=== PATIENT | female | born 1950 | race Caucasian/White ===

== ENCOUNTER 2018-09-08 05:59 | Day surgery (SDC) | payer BC ==
[2018-09-01 17:18] VITALS: BMI 30.2
[2018-09-08] MEDS ORDERED: MIDAZOLAM HCL 2 MG/2 ML SINGLE DOSE VIAL ONE ×2 (06:40→07:55)
[2018-09-08] MEDS ORDERED: ROPIVACAINE HCL 0.5% 30ML VIAL ONE (06:40)
[2018-09-08] MEDS ORDERED: PROPOFOL 20 ML ONE ×4 (07:50)
[2018-09-08] MEDS ORDERED: ceFAZolin SODIUM 1 GM VIAL ONE (08:42)
[2018-09-08] MEDS ORDERED: LIDOCAINE HCL/PF 2% SDV 5ML VIAL ONE (08:42)
[2018-09-08] MEDS ORDERED: ONDANSETRON 4 MG/2 ML VIAL ONE (08:42)
[2018-09-08] MEDS ORDERED: oxyCODONE HCL 5 MG TABLET PO PRN (08:57)
[2018-09-08] MEDS ORDERED: ONDANSETRON 4 MG/2 ML VIAL IVPUSH PRN (08:57)
[2018-09-08] MEDS ORDERED: LACTATED RINGERS SOLUTION 1,000 ML IV SCH (09:00)
--- NOTE | 2018-09-08 11:32 | OP ---
DATE OF OPERATION: 09/08/2018 SURGEON: Pb Hector MD PLASTER APPLICATOR: RADHA Villa PREOPERATIVE DIAGNOSES: 1. Right shoulder rotator cuff tear. 2. Right shoulder adhesive capsulitis. 3. Right shoulder impingement. 4. Right shoulder acromioclavicular degenerative joint disease. 5. Right shoulder superior labral tear, anterior and posterior, with synovitis. POSTOPERATIVE DIAGNOSES: 1. Right shoulder rotator cuff tear. 2. Right shoulder adhesive capsulitis. 3. Right shoulder impingement. 4. Right shoulder acromioclavicular degenerative joint disease. 5. Right shoulder superior labral tear, anterior and posterior, with synovitis. PROCEDURES PERFORMED: 1. Right shoulder arthroscopy with arthroscopic rotator cuff repair (CPT code 65340). 2. Right shoulder arthroscopy with lysis and resection of adhesions (CPT code 45194). 3. Right shoulder arthroscopy with subacromial decompression (CPT code 77059). 4. Right shoulder arthroscopy with resection of distal clavicle/acromioclavicular joint (CPT code 44275). 5. Right shoulder arthroscopy with debridement (CPT code 31517). FINDINGS: 1. A full-thickness rotator cuff tear, supraspinatus. 2. Partial subscapularis tear. 3. Type 1 to 4 superior labral tear, anterior to posterior, with extension into the biceps tendon. 4. Anterior and posterior labral fraying. 5. Central grade 3 to 4 cartilage injury, 4 cm x 2 cm, central glenoid. 6. Full-thickness supraspinatus, 6 cm in length. 7. Type 3 acromion with anterior spurring. 8. Inferior spurs of clavicle, acromioclavicular joint disease. 9. Thickened scar tissue in the subacromial space. 10. Glenohumeral adhesions and scar tissue diffusely along the synovium. REPAIR TYPE: Two mattress sutures were placed into the supraspinatus using the Opus delivery device, and 1 [place] anchor was used attaching the 2 sutures. DESCRIPTION OF PROCEDURE: Informed consent was obtained. The patient was taken to the operating room, where the upper extremity was prepped and draped in a sterile fashion. The shoulder was manipulated for a full range of motion. A posterior incision portal was made and directed to the glenohumeral joint. Under direct visualization, an anterior incision and portal was made. Extensive synovitis, as well as chondral injuries throughout the glenohumeral joint were debrided and removed. Any identified labral injuries, including the superior labral tear, anterior and posterior, and anterior labrum torn portions, were removed as well. The rotator cuff was visualized and noted to have a full-thickness tear. The edges were debrided. The posterior incision portal was redirected to the subacromial space where a lateral incision portal was made. Excessive and thickened scar tissue noted throughout the subacromial space, including bursal and scar tissue, was removed. The type 2 acromion was converted into a flattened type 1 using a bur for subacromial decompression. The distal inferior spur at the distal clavicle was also debrided with the use of an accessory portal in the acromioclavicular joint. The edges of the rotator cuff were identified. Sutures were placed into the rotator cuff and secured using anchors through the greater tuberosity. Prior to securing, a bleeding bed was made using a small bur, creating a bleeding surface of the rotator cuff insertion. The shoulder was then drained, a single suture was placed in all portals, a sterile dressing was placed and the patient was transferred to the recovery room without complication. The PA listed above was present and assisted at surgery. Their presence was absolutely medically necessary for the completion of the procedure. They helped hold the arthroscopy, pass instruments (and implants when indicated) and the procedure could not have been completed without their assistance. PB HECTOR M.D. [id number]
[2018-09-08] MEDS ORDERED: ACETAMINOPHEN 325 MG TABLET (FP) ONE (11:33)
[2018-09-08 12:55] VITALS: BP 140/71; PULSE 70; TEMP 97.4
[2018-09-08] MEDS ORDERED: ACETAMINOPHEN 325 MG TABLET (FP) PO ONE (12:57)
--- NOTE | 2018-09-13 14:04 | PATH ---
Surgical Pathology Report Patient Name: KHANH CORRALES Med. Rec. #: [id number] /Age/Gender: 1950 (Age: 68) / F Account: [id number] Location: [facility] Taken: 09/08/2018 Received: 09/08/2018 Reported: 09/13/2018 Physicians: Washington Ellis M.D. Specimen(s) Received RIGHT KNEE SHAVINGS Clinical History Right shoulder, rotator cuff tear Final Diagnosis SHOULDER, RIGHT, ARTHROSCOPIC SHAVINGS: FIBROSYNOVIAL TISSUE, CARTILAGE, SKELETAL MUSCLE AND SCANT BONE. Electronically Signed Celeste Ferreira M.D. Gross Description Received in formalin, labeled "right shoulder shavings" multiple fragments of soto and yellow soft tissue having an aggregate of 3.5 x 2 x 0 4 cm. Heater Tender tissue is submitted in one cassette. AE/09/11/2018 ebram/09/11/2018
== END 2018-09-08 12:00 | disposition home or self-care (01) ==
LOC: FASU 05:59
PROVIDERS: ATTEND Orthopaedic Surgery
PROC: 0RNJ4ZZ Release Right Shoulder Joint, Percutaneous Endoscopic Approach (ICD-10-PCS; 2018-09-08)
PROC: 0PB94ZZ Excision of Right Clavicle, Percutaneous Endoscopic Approach (ICD-10-PCS; 2018-09-08)
PROC: 0RBJ4ZZ Excision of Right Shoulder Joint, Percutaneous Endoscopic Approach (ICD-10-PCS; 2018-09-08)
PROC: 0LQ14ZZ Repair Right Shoulder Tendon, Percutaneous Endoscopic Approach (ICD-10-PCS; principal; 2018-09-08 08:11)
DX: M75.121 Complete rotator cuff tear or rupture of right shoulder, not specified as traumatic (principal); M75.01 Adhesive capsulitis of right shoulder; M75.41 Impingement syndrome of right shoulder; M19.011 Primary osteoarthritis, right shoulder; M65.811 Other synovitis and tenosynovitis, right shoulder; M24.111 Other articular cartilage disorders, right shoulder
CPT/HCPCS: 88304-TC; 94760

== ENCOUNTER 2019-11-16 06:15 | Day surgery (SDC) | payer BC ==
[2019-11-12 17:12] VITALS: BMI 31.4
[2019-11-16] MEDS ORDERED: EPINEPHrine 1:1,000 1 MG/1 ML - 30ML VIAL (INJECTION) ONE (07:10)
[2019-11-16] MEDS ORDERED: BUPIVACAINE HCL/PF 2.5 MG/ML - 30 ML VIAL IJ ONE (07:10)
[2019-11-16] MEDS ORDERED: MIDAZOLAM HCL 2 MG/2 ML SINGLE DOSE VIAL ONE (07:16)
[2019-11-16] MEDS ORDERED: PROPOFOL 20 ML ONE ×2 (07:16→07:35)
[2019-11-16] MEDS ORDERED: SUCCINYLCHOLINE CHLORIDE 200 MG/10 ML SYRINGE ONE (07:16)
[2019-11-16] MEDS ORDERED: ACETAMINOPHEN INJECTION 100 ML IVPB ONE (07:20)
[2019-11-16] MEDS ORDERED: LIDOCAINE HCL/PF 2% SDV 5ML VIAL ONE (07:35)
[2019-11-16] MEDS ORDERED: SODIUM CHLORIDE 0.9% P/F 10 ML VIAL IJ ONE (07:40)
[2019-11-16] MEDS ORDERED: ceFAZolin SODIUM 1 GM VIAL ONE (07:41)
[2019-11-16] MEDS ORDERED: GLYCOPYRROLATE 0.2 MG/1 ML VIAL ONE (07:57)
[2019-11-16] MEDS ORDERED: EPHEDRINE SULFATE/0.9% NACL/PF 50 MG/10 ML SYRINGE NR ONE (08:06)
[2019-11-16] MEDS ORDERED: KETOROLAC TROMETHAMINE 30 MG/1 ML VIAL ONE (08:16)
[2019-11-16] MEDS ORDERED: BUPIVACAINE HCL/PF 0.25% (2.5MG/ML) 10 ML VIAL IJ ONE (08:37)
[2019-11-16] MEDS ORDERED: oxyCODONE HCL 5 MG TABLET PO PRN ×2 (08:58)
[2019-11-16] MEDS ORDERED: ONDANSETRON 4 MG/2 ML VIAL IVPUSH PRN (08:58)
[2019-11-16] MEDS ORDERED: LACTATED RINGERS SOLUTION 1,000 ML IV SCH (09:00)
[2019-11-16 10:09] VITALS: TEMP 98.6
[2019-11-16 12:23] VITALS: PULSE 61
[2019-11-16 12:28] VITALS: BP 139/53
--- NOTE | 2019-11-16 20:16 | OP ---
DATE OF OPERATION: 11/16/2019 LOCATION: [facility]. SURGEON: Washington Hector MD. REMARKETING REP: RADHA Villa. PREOPERATIVE DIAGNOSIS: 1. Right knee medial lateral meniscal tear. 2. Right knee cartilage injury. 3. Right knee synovitis. POSTOPERATIVE DIAGNOSIS: 1. Right knee medial lateral meniscal tear. 2. Right knee cartilage injury. 3. Right knee synovitis. PROCEDURE: 1. Right knee arthroscopy, partial meniscectomy medial and lateral meniscus. CPT code 24863. 2. Right knee arthroscopy with chondroplasty and abrasion plasty. CPT code 35176. 3. Right knee arthroscopy synovectomy. CPT code 49137. FINDINGS: 1. Medial meniscus and posterior horn extension to the root posterior 15%. 2. Lateral meniscus anterior horn and central body and posterior horn tear. 3. Synovitis patellofemoral medial lateral notch area. 4. plateau with moderate grade 3 changes 2 cm x 1 cm anterior medial, medial femoral condyle 5. ACL and PCL intact. 6. Diffuse grade 1-2 . 7. Central grade 1-2 cartilage injury patellofemoral trochlea with 4 cm x 2 cm grade 4 changes patellofemoral trochlea anterior femur at site of plica adhesion. PROCEDURE: Informed consent was obtained. The patient came to the operating room, where the lower extremity was prepped and draped in a sterile fashion. A tourniquet was placed on the upper thigh, but not inflated. Using standard arthroscopic technique, a lateral incision and portal was made to allow for introduction of the camera into the suprapatellar bursa. This was then taken to the medial joint line, where under direct visualization, a medial incision and portal was made. Excessive synovium noted in the medial, lateral and patellofemoral and notch area was removed by an upbiter, shaver and Bovie cautery. This was found to bring in inflammatory tissue into the joint surface, a source of pain and dysfunction. Probing of the medial and lateral meniscus found tears, as described in the findings. These were removed with the upbiter and shaver and taken back to a stable rim. Grade 2 to 3 degenerative changes were treated with a chondroplasty, removing all flaking surfaces with low-setting Bovie along the periphery to prevent further flaking. Grade 4 changes, as noted, were treated with an abrasoplasty, creating a bleeding surface at the bone/cartilage interface. Aggressive debridement with shaver/jody created bleeding surface. Micro fracture also done when indicated in findings. All areas of the knee were once again reexamined. The knee was then drained and a single suture was placed in all portals. A sterile dressing was placed and the patient was transferred to the recovery room without complication. The PA listed above was present and assisted at surgery. Their presence was absolutely medically necessary for the completion of the procedure. They helped hold the arthroscopy, pass instruments (and implants when indicated) and the procedure could not have been completed without their assistance. WASHINGTON HECTOR M.D. [id number]
--- NOTE | 2019-11-20 16:12 | PATH ---
Surgical Pathology Report Patient Name: KHANH CORRALES Med. Rec. #: [id number] /Age/Gender: 1950 (Age: 69) / F Account: [id number] [facility] Taken: 11/16/2019 Received: 11/16/2019 Reported: 11/20/2019 Physicians: Washington Ellis M.D. Specimen(s) Received RIGHT KNEE SHAVINGS Clinical History Derangement of right knee Final Diagnosis RIGHT KNEE SHAVINGS: PORTIONS OF FIBROCARTILAGINOUS AND SYNOVIAL TISSUE WITH FOCAL FIBROSIS. Electronically Signed Vinh Fermin M.D. Gross Description Received in formalin, labeled "right knee shaving," is a 4.5 x 4.5 x 0.4 cm. aggregate of soto-yellow soft tissue fragments. A architectural representative portion is submitted in one cassette. /11/16/2019 saudi/11/16/2019
== END 2019-11-16 11:30 | disposition home or self-care (01) ==
LOC: FASU 06:15
PROVIDERS: ATTEND Orthopaedic Surgery
PROC: 0SBC4ZZ Excision of Right Knee Joint, Percutaneous Endoscopic Approach (ICD-10-PCS; 2019-11-16)
PROC: 0SBC4ZZ Excision of Right Knee Joint, Percutaneous Endoscopic Approach (ICD-10-PCS; 2019-11-16)
PROC: 0SBC4ZZ Excision of Right Knee Joint, Percutaneous Endoscopic Approach (ICD-10-PCS; principal; 2019-11-16 08:14)
DX: S83.241A Other tear of medial meniscus, current injury, right knee, initial encounter (principal); S83.281A Other tear of lateral meniscus, current injury, right knee, initial encounter; S83.8X1A Sprain of other specified parts of right knee, initial encounter; M65.861 Other synovitis and tenosynovitis, right lower leg; X58.XXXA Exposure to other specified factors, initial encounter; Y93.9 Activity, unspecified; Y92.9 Unspecified place or not applicable
CPT/HCPCS: 88304-TC; 94760; J0131